=== PATIENT | male | born 1955 | race African-American/Black ===

== ENCOUNTER 2016-11-11 23:18 | Emergency (ER) | payer MEDICAID ==
[~2016-11-11 23:18] MED LIST: ALPRAZOLAM PO; BACTRIM DS TABL1 TA1 PO; DEPRESSION MED; KEFLEX500 MG PO; PERCOCET7.5 PO; VICODIN 5/1 TAB 5/50 PO
== END 2016-11-11 23:55 | disposition home or self-care (01) ==
LOC: CED 23:18
DX: M79.605 Pain in left leg (principal)
CPT/HCPCS: 99282

== ENCOUNTER 2016-11-13 03:33 | Emergency (ER) | payer MEDICAID ==
--- NOTE | ~2016-11-13 | CR169 ---
[facility] A Service of [facility] RADIOLOGY TEXT RESULTS PATIENT: LIAT BAIRES LOCATION: [facility] : 59 UNIT #: [id number] AGE: [address]: Adarsh Carranza MD SEX: M ORDER DR: [id number] [facility] [address] [place], [place] [address] [id number] E MR#: [id number] Acc #: [id number] NAME: LIAT BAIRES : 1955 SEX: M STUDY DATE/TIME: 11/13/2016 3:43 UNIT: [facility] ROOM: STUDY DESCRIPTION: CR Knee 2 Views Lt Attending Physician: Adarsh Carranza M.D. Ordering Physician: Adarsh Carranza M.D. Primary Care Physician: Lyubov Banerjee M.D. MEDICAL IMAGING REPORT This report is preliminary unless electronic signature is present EXAM Left knee 11/13/2016 HISTORY 60-year-old male with history of left below-knee amputation in 2004 presenting to the ED tonight complaining of distal pain at the amputation margin. No reported acute injury. TECHNIQUE Three-view left knee series. FINDINGS The exam shows chronic changes left below-knee amputation at the proximal tibial metaphysis level. No evidence of osteomyelitis, fracture or other active osseous process at the amputation margin. No visible soft tissue gas or radiopaque soft tissue foreign body. No fracture, dislocation or other acute osseous abnormality. No visible joint effusion. IMPRESSION 1. No acute osseous abnormality. 2. Postop changes prior below-knee amputation as described. Dictated by... Ross Santos M.D. THIS IS AN ELECTRONICALLY VERIFIED REPORT Ross Santos M.D. at 11/14/2016 5:30 AM RGW/rnr TD: 11/14/2016 02:06 JOB #: [id number] MEDICAL IMAGING REPORT [facility] A Service of [facility] RADIOLOGY TEXT RESULTS PATIENT: LIAT BAIRES LOCATION: [facility] : 59 UNIT #: [id number] AGE: [address]: Adarsh Carranza MD SEX: M ORDER DR: COPY
== END 2016-11-13 04:40 | disposition home or self-care (01) ==
LOC: CED 03:33
DX: L89.899 Pressure ulcer of other site, unspecified stage (principal); I10 Essential (primary) hypertension; Z98.890 Other specified postprocedural states; F17.200 Nicotine dependence, unspecified, uncomplicated
CPT/HCPCS: 73560; 99283

== ENCOUNTER 2016-11-15 03:12 | Emergency (ER) | payer MEDICAID ==
--- NOTE | ~2016-11-15 | CR21 ---
[facility] A Service of [facility] & [facility] RADIOLOGY TEXT RESULTS PATIENT: LIAT BAIRES LOCATION: [facility] : 59 UNIT #: [id number] AGE: [address]: Sabina Tam APRN SEX: M ORDER DR: [id number] [facility] [address] [place], [place] [address] [id number] E MR#: [id number] Acc #: [id number] NAME: LIAT BAIRES : 1955 SEX: M STUDY DATE/TIME: 11/15/2016 3:57 UNIT: [facility] ROOM: STUDY DESCRIPTION: CR Ankle Min 3 Views Rt Attending Physician: Sabina Tam A.P.R.N. Ordering Physician: Sabina Tam A.P.R.N. Primary Care Physician: Lyubov Banerjee M.D. MEDICAL IMAGING REPORT This report is preliminary unless electronic signature is present EXAM Right ankle series 11/15/2016 HISTORY 60-year-old male in the ED complaining of 2-day history of pain over the dorsal aspect of the ankle. No reported acute injury. TECHNIQUE Three-view right ankle series. FINDINGS No fracture, dislocation or other acute osseous abnormality. Mild soft tissue swelling surrounding the ankle. Flatfoot deformity. IMPRESSION No acute osseous abnormality. Soft tissue swelling surrounding the ankle. Dictated by... Ross Santos M.D. THIS IS AN ELECTRONICALLY VERIFIED REPORT Ross Santos M.D. at 11/15/2016 9:58 PM Jordan TD: 11/15/2016 12:20 JOB #: [id number] MEDICAL IMAGING REPORT COPY
[2016-11-15 04:13] LABS: BASOPHIL% 0.6 % (0-2.5); EOSINOPHIL# 0.1 X10e3 (0-0.7); EOSINOPHIL% 0.7 % (0.0-7.0); HEMATOCRIT 44.8 % (38.0-50.0); HEMOGLOBIN 15.3 gm/dL (13.0-16.0); LYMPHOCYTE# 1.4 X10e3 (1.0-3.5); LYMPHOCYTE% 18.7 % (17.0-45.0); MEAN CELL VOLUME 97.4 FL (83-96); MEAN CORPUSCULAR HEMOGLOBIN 33.3 PG (28-34); MEAN CORPUSCULAR HGB CONC 34.1 g/dL (30-36); MEAN PLATELET VOLUME 8.3 FL (6.5-11.5); MONOCYTE# 0.6 X10e3 (0-1.0); MONOCYTE% 8.2 % (3.0-12.0); NEUTROPHIL# 5.4 X10e3 (1.5-7.1); NEUTROPHIL% 71.8 % (40-75); PLATELET COUNT 216 X10e3 (140-420); RED CELL DISTRIBUTION WIDTH 13.2 % (11.0-15.5); WHITE BLOOD COUNT 7.5 X10e3 (4.0-10.5)
[2016-11-15 04:16] LABS: DIFF IND NO
[2016-11-15 04:31] LABS: BLOOD UREA NITROGEN 13 mg/dL (9-23); BUN/CREATININE RATIO 11.81; CALCIUM SERUM 9.1 mg/dL (8.4-10.2); CARBON DIOXIDE 28 mmol/L (22-31); CHLORIDE 96 mmol/L (100-111); CREATININE SERUM 1.1 mg/dL (0.6-1.4); GLOM FILT RATE Estimated ABOVE60 mL/min (>60); GLUCOSE FASTING 106 mg/dL (70-110); POTASSIUM 3.7 mmol/L (3.5-5.1); SODIUM 134 mmol/L (135-145)
== END 2016-11-15 05:48 | disposition home or self-care (01) ==
LOC: CED 03:12
PROVIDERS: Nurse Practitioner
DX: S93.401A Sprain of unspecified ligament of right ankle, initial encounter (principal); L97.829 Non-pressure chronic ulcer of other part of left lower leg with unspecified severity; I10 Essential (primary) hypertension; Z89.512 Acquired absence of left leg below knee; Z88.0 Allergy status to penicillin; F17.200 Nicotine dependence, unspecified, uncomplicated; X50.9XXA Other and unspecified overexertion or strenuous movements or postures, initial encounter
CPT/HCPCS: 29405; 73610; 80048; 85025; 99283

== ENCOUNTER 2016-11-17 07:33 | Emergency (ER) | payer MEDICAID | END 2016-11-17 08:15 | disposition home or self-care (01) | LOC: CED 07:33 | DX: T87.44 Infection of amputation stump, left lower extremity (principal); G89.28 Other chronic postprocedural pain; M79.605 Pain in left leg | CPT/HCPCS: 29530; 99283 ==

== ENCOUNTER 2016-11-28 03:01 | Emergency (ER) | payer MEDICAID | END 2016-11-28 03:15 | disposition home or self-care (01) | LOC: CED 03:01 | DX: L30.9 Dermatitis, unspecified (principal); Z91.14 Patient's other noncompliance with medication regimen; F17.210 Nicotine dependence, cigarettes, uncomplicated; F90.9 Attention-deficit hyperactivity disorder, unspecified type; I10 Essential (primary) hypertension; Z88.0 Allergy status to penicillin; Z98.890 Other specified postprocedural states | CPT/HCPCS: 99282 ==

== ENCOUNTER 2016-12-04 23:55 | Emergency (ER) | payer MEDICAID | END 2016-12-05 03:35 | disposition home or self-care (01) | LOC: CED 23:55 | DX: T87.89 Other complications of amputation stump (principal); Z88.0 Allergy status to penicillin; Z88.8 Allergy status to other drugs, medicaments and biological substances | CPT/HCPCS: 99283 ==